=== PATIENT | male | born 1960 | race Caucasian/White ===

== ENCOUNTER 2023-11-03 08:08 | Inpatient (IN) | payer SELFPAY ==
[~2023-11-03] VITALS: Ht 177.8 cm; Wt 85.3 kg
[2023-11-03 09:03] LABS: BASOPHILS % 0.7 % (0.0-2.0); EOSINOPHILS % 1.6 % (0.0-5.0); HEMATOCRIT. 26.7 % (42.0-52.0); HEMOGLOBIN. 8.7 g/dL (14.0-18.0); LYMPHOCYTES % 13.2 % (20.0-50.0); MEAN CORPUSCULAR HEMOGLOBIN 29.1 pg (28.0-32.0); MEAN CORPUSCULAR HGB CONC 32.5 g/dL (31.0-37.0); MEAN CORPUSCULAR VOLUME 89.7 fL (80.0-94.0); MEAN PLATELET VOLUME 8.5 fl (7.4-10.4); MONOCYTES % 6.1 % (2.0-8.0); NEUTROPHILS % 78.4 % (40.0-76.0); PLATELET 194 x1000/uL (130-400); RED BLOOD CELL COUNT 2.98 mill/uL (4.7-6.1); RED CELL DISTRIBUTION WIDTH 13.5 % (11.6-14.6); WHITE BLOOD COUNT 12.1 x1000/uL (4.5-11.0)
[2023-11-03 09:13] LABS: PROTHROMBIN TIME 11.4 sec (9.6-11.0)
[2023-11-03] MEDS: PANTOPRAZOLE SODIUM 40 MG/VIAL IV STA (09:15)
[2023-11-03 09:24] LABS: ALANINE AMINOTRANSFERASE 13 IU/L (10-49); ALBUMIN 3.1 g/dL (3.2-4.8); ASPARTATE AMINOTRANSFERASE 17 IU/L (<34); BILIRUBIN TOTAL 0.4 mg/dL (0.1-1.0); CALCIUM 7.5 mg/dL (8.7-10.4); CARBON DIOXIDE 23 mEq/L (21-32); CHLORIDE 108 mEq/L (98-107); CREATININE 0.8 mg/dL (0.6-1.3); GLUCOSE 162 mg/dL (70-105); PROTEIN TOTAL 5.1 g/dL (6.0-8.3); SODIUM 137 mEq/L (136-145); TROPONIN I HIGH SENSITIVITY 20 ng/L (3.0-53); UREA NITROGEN BLOOD 33 mg/dL (9-23)
[2023-11-03] MEDS: OCTREOTIDE ACETATE 50 MCG/ML 1ML IV STA (09:40)
[2023-11-03 12:00] VITALS: BP 123/63; PULSE 73; RESP 18; TEMP 97.9
[2023-11-03 12:36] VITALS: BP 123/63; PULSE 71; RESP 16; TEMP 97.9
[2023-11-03] MEDS ORDERED: RANO10005 PO (13:02)
[2023-11-03] MEDS ORDERED: AMLO5TAB88 MT (13:02)
[2023-11-03] MEDS: SODIUM CHLORIDE 0.9% 1,000 ML IV SCH (13:45)
[2023-11-03 14:00] VITALS: PULSE 72; RESP 24
[2023-11-03 15:13] LABS: HEMATOCRIT 31.9 % (42.0-52.0); HEMOGLOBIN 10.6 g/dL (14.0-18.0)
[2023-11-03 16:00] VITALS: BP 138/68; PULSE 59; RESP 19; TEMP 98.2
[2023-11-03 16:58] LABS: CLARITY URINE CLEAR (CLEAR); COLOR URINE YELLOW (YELLOW); GLUCOSE URINE NEGATIVE (NEGATIVE); KETONES URINE TRACE (NEGATIVE); LEUKOCYTE ESTERASE URINE NEGATIVE (NEGATIVE); NITRITE URINE NEGATIVE (NEGATIVE); OCCULT BLOOD URINE NEGATIVE (NEGATIVE); PROTEIN URINE NEGATIVE (NEGATIVE); SPECIFIC GRAVITY URINE 1.021 (1.005-1.030); UROBILINOGEN URINE 0.2 E.U./dL (0.2-1.0)
[2023-11-03] MEDS ORDERED: IOHEXOL-300 100 ML BOTTLE ONE (18:59)
[2023-11-03] MEDS ORDERED: ACETAMINOPHEN 325MG TABLET PO PRN ×2 (19:00)
[2023-11-03] MEDS ORDERED: DIPHENHYDRAMINE 50MG/ML VIAL IV PRN (19:00)
[2023-11-03] MEDS ORDERED: CLONIDINE 0.1MG TABLET PO PRN (19:00)
[2023-11-03] MEDS ORDERED: ONDANSETRON HCL 4MG/2ML INJ IV PRN (19:00)
[2023-11-03 20:00] VITALS: BP 135/70; PULSE 75; RESP 18; TEMP 97.5
[2023-11-03 22:00] VITALS: BP 129/78; PULSE 72; RESP 17; TEMP 97.7
[2023-11-03] MEDS: PANTOPRAZOLE SODIUM 40 MG/VIAL IV SCH (23:00)
[2023-11-04] VITALS (11 sets, daily range): BP systolic 102–145; BP diastolic 47–110; PULSE 60–73; RESP 14–26; TEMP 96.7–98.2
[2023-11-04] MEDS: SODIUM CHLORIDE 0.9% 1,000 ML IV SCH (05:00)
[2023-11-04 07:29] LABS: HEMATOCRIT 25.5 % (42.0-52.0); HEMOGLOBIN 8.9 g/dL (14.0-18.0); MEAN CORPUSCULAR HEMOGLOBIN 30.7 pg (28.0-32.0); MEAN CORPUSCULAR HGB CONC 34.9 g/dL (31.0-37.0); MEAN CORPUSCULAR VOLUME 88.2 fL (80.0-94.0); PLATELET 156 x1000/uL (130-400); RED BLOOD CELL COUNT 2.89 mill/uL (4.7-6.1); RED CELL DISTRIBUTION WIDTH 13.7 % (11.6-14.6)
[2023-11-04 07:47] LABS: CALCIUM 7.7 mg/dL (8.7-10.4); CARBON DIOXIDE 25 mEq/L (21-32); CHLORIDE 110 mEq/L (98-107); CREATININE 0.7 mg/dL (0.6-1.3); GLUCOSE 96 mg/dL (70-105); POTASSIUM 3.7 mEq/L (3.5-5.1); SODIUM 139 mEq/L (136-145); UREA NITROGEN BLOOD 24 mg/dL (9-23)
[2023-11-04 07:52] LABS: FERRITIN 60 ng/mL (22-322); FOLIC ACID (FOLATE) SERUM 15.85 ng/mL (>5.38); VITAMIN B12 SERUM 956 pg/mL (211-911)
[2023-11-04 07:54] LABS: IRON 229 ug/dL (65-175); TOTAL IRON BINDING CAPACITY 293 ug/dl (250-425)
[2023-11-04 08:24] LABS: HEPATITIS B SURFACE ANTIGEN NEGATIVE (Negative); HEPATITIS C AB NON REACTIVE (Neg) (Negative)
[2023-11-05] VITALS (24 sets, daily range): BP systolic 143–165; BP diastolic 61–91; PULSE 54–77; RESP 14–22; TEMP 98–98.5; O2SAT 98
[2023-11-05 03:18] LABS: BASOPHILS % 0.7 % (0.0-2.0); EOSINOPHILS % 4.4 % (0.0-5.0); HEMATOCRIT. 25.4 % (42.0-52.0); HEMOGLOBIN. 8.5 g/dL (14.0-18.0); LYMPHOCYTES % 27.3 % (20.0-50.0); MEAN CORPUSCULAR HEMOGLOBIN 29.8 pg (28.0-32.0); MEAN CORPUSCULAR HGB CONC 33.3 g/dL (31.0-37.0); MEAN CORPUSCULAR VOLUME 89.4 fL (80.0-94.0); MEAN PLATELET VOLUME 8.7 fl (7.4-10.4); MONOCYTES % 8.9 % (2.0-8.0); NEUTROPHILS % 58.7 % (40.0-76.0); PLATELET 155 x1000/uL (130-400); RED BLOOD CELL COUNT 2.84 mill/uL (4.7-6.1); RED CELL DISTRIBUTION WIDTH 13.4 % (11.6-14.6); WHITE BLOOD COUNT 7.4 x1000/uL (4.5-11.0)
[2023-11-05 03:36] LABS: ALANINE AMINOTRANSFERASE 13 IU/L (10-49); ALBUMIN 3.2 g/dL (3.2-4.8); ASPARTATE AMINOTRANSFERASE 20 IU/L (<34); BILIRUBIN TOTAL 0.4 mg/dL (0.1-1.0); CALCIUM 7.8 mg/dL (8.7-10.4); CARBON DIOXIDE 26 mEq/L (21-32); CHLORIDE 108 mEq/L (98-107); CREATININE 0.7 mg/dL (0.6-1.3); GLUCOSE 94 mg/dL (70-105); POTASSIUM 3.3 mEq/L (3.5-5.1); PROTEIN TOTAL 4.6 g/dL (6.0-8.3); SODIUM 139 mEq/L (136-145); UREA NITROGEN BLOOD 12 mg/dL (9-23)
[2023-11-05] MEDS ORDERED: PROPOFOL 200MG/20ML VIAL IV ONE (13:38)
[2023-11-05] MEDS ORDERED: LIDOCAINE HCL 1% 20ML VIAL (Pyxis) INJ ONE (13:38)
[2023-11-05] MEDS ORDERED: MEPERIDINE HCL/PF 25MG/ML CPJ IV PRN (14:00)
[2023-11-05] MEDS ORDERED: HYDROMORPHONE HCL/PF 2MG/ML CPJ IV PRN (14:00)
[2023-11-05] MEDS ORDERED: LABETALOL 5MG/ML SYR 20 MG/4 ML SYRINGE IV PRN (14:00)
[2023-11-05] MEDS ORDERED: ONDANSETRON HCL 4MG/2ML INJ IV PRN (14:00)
[2023-11-05] MEDS ORDERED: PANTOPRAZOLE SODIUM 40 MG/VIAL IV SCH (14:15)
[2023-11-05] MEDS ORDERED: SUCRALFATE 1G TABLET PO SCH (17:30)
[2023-11-05] MEDS ORDERED: METOCLOPRAMIDE HCL 10MG/2ML VIAL IV SCH (17:30)
[2023-11-05] MEDS ORDERED: PROT40 MT (18:50)
[2023-11-05] MEDS ORDERED: PROT40 PO ×2 (18:51→18:53)
[2023-11-05] MEDS ORDERED: SUCR1TAB30 PO (18:52)
[2023-11-05] MEDS ORDERED: LEVA15HF6 IH (18:54)
[2023-11-05] MEDS ORDERED: NITR0.4T49 SL (18:54)
[2023-11-05] MEDS ORDERED: VALS1TAB80 PO (18:55)
[2023-11-05] MEDS ORDERED: CYANOCOBALAMIN (18:55)
[2023-11-05] MEDS ORDERED: BISO5TAB13 PO (18:55)
[2023-11-05] MEDS ORDERED: CYAN100096 (18:56)
[2023-11-05] MEDS ORDERED: CYAN100069 (18:56)
[2023-11-05] MEDS ORDERED: CYAN100081 (18:58)
== END 2023-11-05 19:00 | disposition home or self-care (01) | DRG 241 ==
LOC: ER 08:58 → 5EST 09:13 → EDBEDREQ 09:16
PROVIDERS: ADMIT Internal Medicine; ATTEND Internal Medicine
PROC: 30233N1 Transfusion of Nonautologous Red Blood Cells into Peripheral Vein, Percutaneous Approach (ICD-10-PCS; 2023-11-03)
PROC: 0DB78ZX Excision of Stomach, Pylorus, Via Natural or Artificial Opening Endoscopic, Diagnostic (ICD-10-PCS; principal; 2023-11-05)
DX: K29.71 Gastritis, unspecified, with bleeding (principal); K22.11 Ulcer of esophagus with bleeding; K21.01 Gastro-esophageal reflux disease with esophagitis, with bleeding; I11.0 Hypertensive heart disease with heart failure; E88.09 Other disorders of plasma-protein metabolism, not elsewhere classified; I95.9 Hypotension, unspecified; I50.9 Heart failure, unspecified; D64.9 Anemia, unspecified; E11.65 Type 2 diabetes mellitus with hyperglycemia; D72.829 Elevated white blood cell count, unspecified; E78.00 Pure hypercholesterolemia, unspecified; E87.6 Hypokalemia; K76.9 Liver disease, unspecified; K44.9 Diaphragmatic hernia without obstruction or gangrene; F17.210 Nicotine dependence, cigarettes, uncomplicated; I25.10 Atherosclerotic heart disease of native coronary artery without angina pectoris; Z86.73 Personal history of transient ischemic attack (TIA), and cerebral infarction without residual deficits
CPT/HCPCS: 36415; 71045; 74178; 76700; 80048; 80053; 81003; 82607; 82728; 82746; 83540; 83550; 84484; 85014; 85018; 85025; 85027; 85044; 86705; 86850; 86900; 86920; 87340; 88305; 93005; 99291; C9113; J2354; J2704; J2765; J3490; J7030; P9016; Q9967